=== PATIENT | female | born 1960 | race African-American/Black ===

== ENCOUNTER → 2022-07-31 | Day surgery (SDC) | payer OTHER ==
[~2022-07-31] MED LIST: AMLODIPINE BESYL5 MG PO; ASPIRIN81 MG PO; CALCIUM CITRATE PO; CETIRIZINE HCL10 MG PO; FENTANYL CITRATE/PF 100MCG/2 ML INJ ONE; FERROUS GLUCON324 M2 PO; HYOSCYAMINE SULFATE 0.5 MG/ML INJ ONE; LATANOPROST2.5 ML OU; MULTI-VITAMIN1 EACH PO; PREDNISONE20 MG PO; PROPOFOL IV EMULSION 10 MG/ML 20 ML VIAL ONE; TRIAMCINOLONE A15 G1 TOP; VITAMIN B-121000 MCG PO
[2022-07-31 17:25] VITALS: BP 128/88
== END | disposition home or self-care (01) ==
LOC: OR 12:32
PROVIDERS: ATTEND Internal Medicine Gastroenterology
DX: K92.1 Melena (principal); Z85.048 Personal history of other malignant neoplasm of rectum, rectosigmoid junction, and anus; D12.5 Benign neoplasm of sigmoid colon; K62.89 Other specified diseases of anus and rectum; K57.30 Diverticulosis of large intestine without perforation or abscess without bleeding; K63.89 Other specified diseases of intestine; Z71.3 Dietary counseling and surveillance; I10 Essential (primary) hypertension; D64.9 Anemia, unspecified; R00.1 Bradycardia, unspecified; R06.02 Shortness of breath; F32.A Depression, unspecified; Z01.810 Encounter for preprocedural cardiovascular examination; Z79.82 Long term (current) use of aspirin; Z79.899 Other long term (current) drug therapy; Z68.30 Body mass index [BMI] 30.0-30.9, adult; Z86.73 Personal history of transient ischemic attack (TIA), and cerebral infarction without residual deficits
CPT/HCPCS: 45380; 83630; 83993; 87045; 87177; 87324; 87328; 87449; 93005; J1980; J2704; J3010; 45378